=== PATIENT | female | born 1975 | race African-American/Black ===

== ENCOUNTER 2020-09-08 12:42 | Emergency (ER) | payer OTHER, MEDICAID ==
[~2020-09-08] VITALS: Ht 167.6 cm; Wt 100.0 kg
[2020-09-08] MEDS ORDERED: prenatal vitamins (13:12)
[2020-09-08] MEDS ORDERED: ONDANSETRON HCL 4MG/2ML INJ IV STA (13:20)
[2020-09-08] MEDS ORDERED: FAMOTIDINE 20MG/2ML VIAL IV STA (13:20)
[2020-09-08] MEDS ORDERED: SODIUM CHLORIDE 0.9% 1,000 ML IV ONE ×2 (13:30→18:15)
[2020-09-08 15:21] LABS: BASOPHILS % 0.3 % (0.0-2.0); EOSINOPHILS % 0.2 % (0.0-5.0); HEMOGLOBIN. 11.9 g/dL (12.0-16.0); MEAN CORPUSCULAR HEMOGLOBIN 29.8 pg (28.0-32.0); MEAN CORPUSCULAR VOLUME 90.1 fL (81.0-99.0); MEAN PLATELET VOLUME 7.5 fl (7.4-10.4); MONOCYTES % 2.5 % (2.0-8.0); PLATELET 423 x1000/uL (130-400); RED CELL DISTRIBUTION WIDTH 15.1 % (11.6-14.6)
[2020-09-08 15:27] LABS: CHLORIDE 106 mEq/L (98-107)
[2020-09-08] MEDS ORDERED: ACETAMINOPHEN 325MG TABLET PO ONE (15:45)
[2020-09-08 15:51] LABS: B-HCG QUANTITATIVE 34428 mIU/mL (<3)
[2020-09-08 15:56] LABS: PROTHROMBIN TIME 10.4 sec (9.6-11.0)
[2020-09-08] MEDS ORDERED: MORPHINE SULFATE 4 MG/ML CPJ (NOT FOR IM USE) IV ONE (17:30)
[2020-09-08 17:40] VITALS: BP 80/76
[2020-09-08 18:50] LABS: CLARITY URINE CLOUDY (CLEAR); COLOR URINE YELLOW (YELLOW); KETONES URINE 2+ (NEGATIVE); LEUKOCYTE ESTERASE URINE TRACE (NEGATIVE); NITRITE URINE NEGATIVE (NEGATIVE); OCCULT BLOOD URINE 1+ (NEGATIVE); PH URINE 5.5 (4.5-8.0); PROTEIN URINE TRACE (NEGATIVE); SPECIFIC GRAVITY URINE 1.027 (1.005-1.030); UROBILINOGEN URINE 0.2 E.U./dL (0.2-1.0)
== END 2020-09-08 19:30 | disposition home or self-care (01) ==
LOC: ER 12:48
DX: O26.891 Other specified pregnancy related conditions, first trimester (principal); R11.2 Nausea with vomiting, unspecified; R10.13 Epigastric pain; R19.7 Diarrhea, unspecified; D72.829 Elevated white blood cell count, unspecified; O09.521 Supervision of elderly multigravida, first trimester; Z3A.08 8 weeks gestation of pregnancy
CPT/HCPCS: 36415; 76700; 76801; 80053; 81003; 83690; 84702; 85025; 85610; 86850; 86900; 86901; 93005; 96361; 96374; 96375; 99285; J2270; J2405; J3490; J7030